=== PATIENT | female | born 1955 | race Caucasian/White ===

== ENCOUNTER 2017-11-12 10:06 | Day surgery (SDC) | payer BC, OTHER ==
[~2017-11-12 10:06] MED LIST: Lactated Ringers 1,000 ML IV SCH
--- NOTE | 2017-11-12 11:53 | PCM.PREANE ---
Preanesthetic Assessment - Anesthesia/Transfusion/Family Hx Anesthesia History: Prior Anesthesia Without Reaction Family History of Anesthesia Reaction: No Transfusion History: No Prior Transfusion(s) Intubation History: Unknown - Review of Systems General: No Symptoms Pulmonary: No Symptoms Cardiovascular: No Symptoms Gastrointestinal: No Symptoms, Other (h/o colon polyps and family h/o colon cancer) Neurological: No Symptoms Other: Reports: None - Physical Assessment NPO Status Date: 11/11/17 NPO Status Time: 23:00 O2 Sat by Pulse Oximetry: 95 Respiratory Rate: 16 Vital Signs: Last Vital Signs Temp 36.5 C 11/12/17 10:45 Pulse 84 11/12/17 10:45 Resp 16 11/12/17 10:45 BP 1345/84 H 11/12/17 10:45 Pulse Ox 95 11/12/17 10:45 Height: 1.73 m Weight: 116.12 kg ASA Class: 2 Mental Status: Alert & Oriented x3 Airway Class: Mallampati = 2 Dentition: Reports: Normal Dentition, Implants (x3 lower left (back)) Thyro-Mental Finger Breadths: 3 Mouth Opening Finger Breadths: 3 ROM/Head Extension: Full Lungs: Clear to Auscultation, Normal Respiratory Effort Cardiovascular: Regular Rate, Regular Rhythm - Allergies Allergies/Adverse Reactions: Allergies Allergy/AdvReac Type Severity Reaction Status Date / Time Penicillins Allergy Hives Verified 11/10/17 10:58 - Blood Blood Available: No - Anesthesia Plan Pre-Op Medication Ordered: None - Acknowledgements Anesthesia Type Planned: MAC Pt an Appropriate Candidate for the Planned Anesthesia: Yes Alternatives and Risks of Anesthesia Discussed w Pt/Guardian: Yes Pt/Guardian Understands and Agrees with Anesthesia Plan: Yes PreAnesthesia Questionnaire HEENT History: Reports: Other (See Below) Other HEENT History: wears glasses/contacts, has dental implants Cardiovascular History: Reports: Hypertension Gastrointestinal History: Reports: Colon Polyp Musculoskeletal History: Reports: None Endocrine/Metabolic History: Reports: Hypothyroidism, Obesity/BMI 30+ (BMI 38.9) - Past Surgical History Head Surgeries/Procedures: Reports: None GI Surgical History: Reports: Colonoscopy (x2 , '07, '12) Musculoskeletal Surgical History: Reports: Other (See Below) Other Musculoskeletal Surgeries/Procedures:: left foot surgery to remove bone spur and to repair tendon - SUBSTANCE USE Smoking Status *Q: Never Smoker Recreational Drug Use History: No - HOME MEDS Home Medications: Home Meds Levothyroxine Sodium [Levoxyl] 150 mcg PO DAILY 11/10/17 [History] Losartan/Hydrochlorothiazide [Losartan-HCTZ 50-12.5 MG] 1 tab PO DAILY 11/10/17 [History] - CURRENT (IN HOUSE) MEDS Current Meds: Current Medications Lactated Ringer's (Ringers, Lactated) 1,000 mls @ 125 mls/hr IV ASDIRECTED COUNTS INCLUDE 234 BEDS AT THE [facility] Last Admin: 11/12/17 11:15 Dose: 125 mls/hr
[2017-11-12] MEDS ORDERED: fentaNYL 100 MCG/2 ML SDV ONE ×2 (13:45→15:02)
[2017-11-12] MEDS ORDERED: Midazolam 1 MG/ML 2 ML SDV ONE (13:45)
[2017-11-12] MEDS ORDERED: Propofol 200 MG/20 ML SDV ONE ×4 (13:45→14:56)
[2017-11-12] MEDS ORDERED: Ketamine 500 mg/10 ML MDV ONE (14:13)
[2017-11-12] MEDS ORDERED: Glycopyrrolate 0.2 MG/ML SDV ONE ×2 (14:19)
[2017-11-12] MEDS ORDERED: ePHEDrine 50 MG/ML SDV ONE (14:44)
[2017-11-12] MEDS ORDERED: Lidocaine 2% 5 ML SDV ONE (14:46)
[2017-11-12] MEDS ORDERED: Ondansetron 4 MG/2 ML SDV IVPUSH PRN (15:53)
[2017-11-12] MEDS ORDERED: Sodium Chloride 0.9% 10 ML Syringe FLUSH PRN (15:53)
[2017-11-12] MEDS ORDERED: Sodium Chloride 0.9% 2.5 ML Syringe FLUSH PRN (15:53)
--- NOTE | 2017-11-12 15:57 | PCM.OPNOTE ---
- General Post-Op/Procedure Note Date of Surgery/Procedure: 11/12/17 Operative Procedure(s): Colonoscopy Pre Op Diagnosis: Personal history of colon polyps. Family history of colon cancer. Post-Op Diagnosis: No evidence of neoplasia Anesthesia Technique: MAC (ASA II) Primary Surgeon: Devan Helton Grain Picker: Yuniel Rolon Condition: Good Free Text/Narrative:: DICTATION 136119 CPT CODE [id number]
[2017-11-12] MEDS ORDERED: Phenylephrine/Normal Saline 100 MCG/ML 10 ML Syringe ONE (16:05)
--- NOTE | 2017-11-12 23:28 | OR ---
SURGEON: Devan Helton M.D. DATE OF PROCEDURE: 11/12/2017 OPERATION PERFORMED: Colonoscopy. MANAGEMENT INFORMATION SYSTEMS DIRECTOR: Dr. Rolon. ANESTHESIA: MAC. ASA CLASSIFICATION: II. PREOPERATIVE DIAGNOSES: 1. Personal history of colon polyps. 2. Family history of colon cancer. POSTOPERATIVE DIAGNOSIS: No evidence of neoplasia. DESCRIPTION OF PROCEDURE: The patient was taken to the endoscopy room and positioned on the endoscopy table in the left lateral decubitus position. Time-out was called for appropriate identification of the patient and procedure. Monitored anesthesia care was provided. The colonoscope was inserted into the rectum and advanced with a great difficulty to the proximal ascending colon visualizing the cecum in the distance. Multiple attempts were made to retroflex the scope, and we could not do so. She does have a very tortuous and redundant colon, and despite pressure in multiple different directions and placing the patient on her back, we were only able to get to the ascending colon. Nevertheless, I did feel that we visualized the cecum. The cecum, ascending colon, hepatic flexure, transverse colon, splenic flexure, descending colon, sigmoid colon, and rectum were well visualized. No tumors or polyps were seen. There was no evidence of angiodysplasia. There was no evidence of inflammatory bowel disease. Once the colonoscope was withdrawn to the rectum, it was retroflexed to visualize the anal orifice from above. Again, no tumors or polyps were seen, and there were no acute hemorrhoidal changes. The colonoscope was then straightened, the rectum aspirated, and the colonoscope removed. The patient tolerated the procedure well and was taken to recovery room in satisfactory condition. WALKER / KOMAL /[id number]
== END 2017-11-12 18:00 | disposition home or self-care (01) ==
LOC: MW.SDS 10:06
PROVIDERS: ATTEND Surgery
DX: Z12.11 Encounter for screening for malignant neoplasm of colon (principal); I10 Essential (primary) hypertension; E03.9 Hypothyroidism, unspecified; K63.89 Other specified diseases of intestine; Z86.010 Personal history of colon polyps; Z80.0 Family history of malignant neoplasm of digestive organs
CPT/HCPCS: 36415; 45378; 80048; 93005; J2250; J2704; J3010; J3490; J7120; J2370